=== PATIENT | female | born 1945 | race African-American/Black ===

== ENCOUNTER 2016-03-11 23:27 | Emergency (ER) | payer MEDICARE, MEDICAID ==
[~2016-03-11] VITALS: Ht 165.1 cm; Wt 74.8 kg
[2016-03-12 00:30] VITALS: BP 146/76
[2016-03-12] MEDS ORDERED: Miralax 17gm pkt ORAL STA (01:14)
[2016-03-12] MEDS ORDERED: PERI-COLACE1 EA ORAL (01:16)
[2016-03-12 01:25] VITALS: BP 154/75
[2016-03-12 01:30] VITALS: BP 154/75
--- NOTE | 2016-03-12 04:01 | Emergency Room Report ---
History of Present Illness General Chief Complaint: Constipation Source: Patient Present Illness HPI 70 YOF with "constipation for 2 days." States straining, abd pain, nausea/ vomiting, diarrhea, past surgical surgery, hard stools, pain with defecation. No history of anal fissure, hemorrhoids. No rectal bleed or blood on toilet paper. Taking "codeine" for months for chronic pain. Called PMD Dr Velasco's office, was Rx-ed glycerol suppository. She "placed 2" and it didnt work, so came to ED. Allergies: Coded Allergies: No Known Allergies (Unverified , 03/11/16) Patient History Past Medical History: other - Breast cancer Past Surgical History: none Pertinent Family History: none Social History: Denies: alcohol use, drug use, smoking Now: No Immunizations: UTD Reviewed Nursing Documentation: PMH: Agreed, PSxH: Agreed Nursing Documentation-PMH Past Medical History: No History, Except For Hx Hypertension: Yes Review of Systems All Other Systems: negative except mentioned in HPI Physical Exam Vital Signs Date Time Temp Pulse Resp B/P Pulse Ox O2 Delivery O2 Flow Rate FiO2 03/11/16 23:53 98.2 73 18 133/76 96 Room Air Sp02 EP Interpretation: reviewed, normal General Appearance: normal inspection, well appearing, no apparent distress, alert Head: normocephalic, atraumatic ENT: normal ENT inspection, hearing grossly normal, normal voice Neck: normal inspection, full range of motion, supple, no bony tend Respiratory: normal inspection, lungs clear, normal breath sounds, no respiratory distress, no retraction, no wheezing Cardiovascular #1: regular rate, rhythm, no edema Gastrointestinal: normal inspection, normal bowel sounds, non tender, soft, no mass, no guarding, no hernia, no pulsatile mass, no rebound Rectal: deferred Genitourinary: no CVA tenderness Musculoskeletal: normal inspection, back normal, normal range of motion, Ciara' s Sign negative Neurologic: normal inspection, alert, oriented x3, responsive, wearing apparel shaker III-XII nml as tested Psychiatric: normal inspection, judgement/insight normal, mood/affect normal Skin: normal inspection, normal color, no rash Medical Decision Making Diagnostic Impression: Primary Impression: Constipation Qualified Codes: K59.00 - Constipation, unspecified ER Course 70 YO F with constipation for 2-3 days. Still passing hard stools. VSS. Afebrile. Abd is non-focal. VSS. Low suspicion for SBO, ileus. Miralax given in ED to take at home Rx colace, senna Info on constipation, high fiber diet given Follw up with PMD recommended DC home Last Vital Signs Date Time Temp Pulse Resp B/P Pulse Ox O2 Delivery O2 Flow Rate FiO2 03/12/16 01:30 98.2 76 15 154/75 95 Room Air Status: improved Disposition: HOME, SELF-CARE Condition: Improved Scripts Docusate Sod/Senna (Docusate Sodium-Senna Tablet) 1 Each Tablet 1 CAP ORAL TWICE A DAY for 10 Days, #20 CAP 0 Refills Prov: CHRISTINA RUGGIERO M.D. 03/12/16 Referrals: SAJAN VELASCO (PCP) Patient Instructions: Constipation, Adult Additional Instructions: - Drink ALL the miralax at home by following instructions - After that, take docusate stool softener twice daily as long as you take your pain medication - Drink plenty of water, eat lots of green, leafy vegetables - Follow up with your primary care doctor in 2-3 days CHRISTINA RUGGIERO M.D. Mar 12, 2016 04:01
== END 2016-03-12 01:30 | disposition home or self-care (01) ==
LOC: EMR 03-12 00:29
DX: K59.00 Constipation, unspecified (principal); I10 Essential (primary) hypertension; Z85.3 Personal history of malignant neoplasm of breast
CPT/HCPCS: 99283

== ENCOUNTER 2017-06-08 07:34 | Outpatient (CLI) | payer MEDICARE, MEDICAID ==
[~2017-06-08 07:34] MED LIST: PERI-COLACE1 EA ORAL
[2017-06-08 10:10] LABS: BLOOD UREA NITROGEN 11 mg/dL (7-18); CREATININE 0.8 MG/DL (0.55-1.30)
--- NOTE | 2017-06-08 12:04 | Diagnostic Imaging Report ---
Indication: Osteoporosis Technique: 10 mm thick slices obtained through the L2, L3, and L4 vertebral bodies. Cortical and trabecular regions of interest were drawn. The average trabecular bone mineral density was calculated. Total dose length product 31 mGycm. CTDIvol(s) 3 x 3 mGy. Dose reduction achieved using automated exposure control Comparison: 01/12/2016 Findings: The calculated bone mineral density is 82.7 mg ca-DEAN/ml. The T score is -2.78. This indicates the patient's bone mineral density is 2.78 standard deviations below that of normal 20-year-old females. The Z score is 0.07. This indicates the patient's bone mineral density is 0.07 standard deviations above that of age-matched controls. When compared to prior study, there is been slight interval reduction in the bone density Impression: Patient's bone mineral density is greater than 25% below that of normal 20-year-old females. Patient is considered osteoporotic by WHO criteria. Insufficiency fracture risk is high. Patient should be considered for therapy, if not already initiated, with followup scan in one year to monitor response to therapy. Note slight increase in degree of demineralization, since previous study of 01/22/[address] scanner at [facility] is accredited by the [employer] and the scans are performed using protocols designed to limit radiation exposure to as low as reasonably achievable to attain images of sufficient resolution adequate for diagnostic evaluation.
--- NOTE | 2017-06-08 15:56 | Diagnostic Imaging Report ---
INDICATION: Chest and abdominal pain. History of pancreatic carcinoma TECHNIQUE: Patient ingested a limited amount of oral contrast, cannot tolerate full amount. IV administration nonionic contrast multiphasic spiral acquisitions obtained through the chest, abdomen, and pelvis Multiplanar reconstructions were generated. Total dose length product 1646.52 mGycm. CTDIvol(s) 16.65,16.65 mGy. Radiation dose was minimized using automated exposure control COMPARISON: none FINDINGS Chest: Very faint groundglass opacity of both lung bases likely reflects compressive atelectasis, possibly with a component of very mild pulmonary edema. There is more focal atelectasis at the left lung base as well. No infiltrates, effusions, masses, or nodules are demonstrated. The heart is mildly enlarged. No pericardial effusion. The main pulmonary artery is somewhat ectatic, measuring 36 mm transverse dimension. The included portions of the thyroid are unremarkable. No axillary or chest wall mass or adenopathy. The bones are unremarkable. Abdomen and pelvis: The liver is unremarkable. No focal abnormality demonstrated. The gallbladder is unremarkable. The upstream common bile duct is mildly ectatic, measuring 7 to 8 mm in diameter, but the downstream common bile duct is normal in caliber. A 6 mm very low attenuation lesion is seen at the anterior aspect of the pancreatic head. This is too small for accurate density measurements but appears to be fat attenuation and may represent a small lipoma or just a focal fat lobule. A calcification in the posterior pancreatic tail appears to be related to the splenic artery. The pancreas is otherwise unremarkable. 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 A punctate calcification is seen within the splenic parenchyma. It is otherwise unremarkable. There is an accessory splenule. The adrenals are unremarkable. The right kidney demonstrates a small focus of scarring in the interpolar region, with some dystrophic appearing calcifications immediately deep to it. The left kidney demonstrates a 9 mm fluid attenuation cyst. No retroperitoneal or mesenteric mass or adenopathy. The uterus is enlarged, demonstrates multiple masses as well as a large central calcification. No adnexal mass demonstrated. There are small fat-containing bilateral inguinal hernias. There are colonic diverticula. No evidence of diverticulitis. The appendix is normal. The small bowel is not well demonstrated due to lack of good oral contrast enhancement. However, it is not dilated and there is no gross wall thickening. No free or loculated peritoneal air or fluid is evident. The bones demonstrate minimal spondylosis at the lumbosacral junction IMPRESSION: No definite acute abnormality Cardiomegaly Very mild groundglass opacity of the lower lung. This is probably just compressive atelectasis related to the cardiomegaly, could also indicate a component of very mild pulmonary edema Somewhat ectatic main pulmonary artery. This suggests but is not diagnostic for pulmonary arterial hypertension 6 mm lesion in the anterior pancreatic head, appears to be fat density, probably a small lipoma or just a fatty lobule Tiny 7 mm splenic arterial aneurysm Enlarged uterus with multiple masses, presumed multiple fibroids. Large central calcification probably indicates a degenerated fibroid Colonic diverticulosis. No evidence of diverticulitis Other findings as noted, including minimal degenerative spondylosis, small fat-containing bilateral inguinal hernias, left renal cyst, right renal scarring and dystrophic calcification, small accessory splenule The CT scanner at [facility] is accredited by the [employer] and the scans are performed using protocols designed to limit radiation exposure to as low as reasonably achievable to attain images of sufficient resolution adequate for diagnostic evaluation.
== END 2017-06-08 09:34 | disposition home or self-care (01) ==
LOC: CAT 07:34
DX: C25.9 Malignant neoplasm of pancreas, unspecified (principal); M81.0 Age-related osteoporosis without current pathological fracture; I51.7 Cardiomegaly; I72.8 Aneurysm of other specified arteries; K57.30 Diverticulosis of large intestine without perforation or abscess without bleeding; M47.9 Spondylosis, unspecified; K40.20 Bilateral inguinal hernia, without obstruction or gangrene, not specified as recurrent; N20.0 Calculus of kidney
CPT/HCPCS: 36415; 71260; 74177; 77078; 82565; 84520; Q9967

== ENCOUNTER → 2017-10-20 | Outpatient (CLI) | payer MEDICARE, MEDICAID ==
[2017-10-20 12:13] LABS: APPEARANCE,URINE SLIGHTLY CLOUDY; BILIRUBIN, URINE NEGATIVE (NEGATIVE); COLOR,URINE PALE YELLOW; GLUCOSE, URINE (UA) 1+ (NEGATIVE); KETONES,URINE NEGATIVE (NEGATIVE); LEUKOCYTE ESTERASE ,URINE NEGATIVE (NEGATIVE); NITRITE,URINE NEGATIVE (NEGATIVE); PH,URINE 7 (4.5-8.0); PROTEIN,URINE 1+ (NEGATIVE); UROBILINOGEN,URINE NORMAL MG/DL (0.0-1.0)
== END | disposition home or self-care (01) ==
LOC: LAB 11:38
DX: R30.0 Dysuria (principal)
CPT/HCPCS: 81001; 87086

== ENCOUNTER 2019-09-25 12:51 | Emergency (ER) | payer MEDICARE, MEDICAID ==
[~2019-09-25] VITALS: Ht 165.1 cm; Wt 72.6 kg
[2019-09-25 13:15] VITALS: BP 144/83
[2019-09-25] MEDS ORDERED: Ketorolac 30mg Inj IM ONE (13:30)
[2019-09-25] MEDS ORDERED: Methocarbamol 750mg tab ORAL ONE (13:30)
--- NOTE | 2019-09-25 14:15 | Diagnostic Imaging Report ---
EXAM: CT Pelvis Without Intravenous Contrast CLINICAL HISTORY: TRAUMA TECHNIQUE: Axial computed tomography images of the pelvis without intravenous contrast. Sagittal and coronal reformatted images were created and reviewed. CTDI is 5.90 mGy and DLP is 281.70 mGy-cm. One or more of the following dose reduction techniques were used: automated exposure control, adjustment of the mA and/or kV according to patient size, use of iterative reconstruction technique. COMPARISON: CT of the pelvis dated 06/26/17. CT of the lumbar spine dated 09/25/19. FINDINGS: Bowel: Unremarkable. No obstruction. No mucosal thickening. Appendix: No findings to suggest acute appendicitis. Intraperitoneal space: Unremarkable. No free air. No significant fluid collection. Bladder: Unremarkable. No stones. Reproductive: 1.9 x 1.9 x 1.8 cm coarse calcification in the uterus, likely a fibroid.. Bones/joints: Mild degenerative narrowing in bilateral hip joints. Moderate to severe disc space loss at L5-S1. No visible fracture or dislocation in the hips or pelvis. Bilateral facet arthrosis at L4-5 and L5-S1. Soft tissues: Unremarkable. Vasculature: Atherosclerosis throughout the abdominal aorta and its proximal branches. No abdominal aortic aneurysm. Lymph nodes: Unremarkable. No enlarged lymph nodes. IMPRESSION: No acute findings. No evidence of fracture or dislocation in the hips or pelvis.
--- NOTE | 2019-09-25 14:18 | Emergency Room Report ---
History of Present Illness General Chief Complaint: Multiple Trauma/Fall Source: Patient Present Illness HPI 74-year-old female with no significant past medical history other than hypertension here complaining of low back pain after fall that occurred a week and half ago. Patient reports that she has been taking [id number]-[id number] medication with minimal relief. Rates the pain 7 out of 10 without radiation. Denies any tingling numbness. Denies saddle paresthesia, urinary bowel incontinence. Patient is not taking any blood thinners. Denies any head injury or loss of consciousness. Patient reports that she was working on her kitchen floor when she slipped and landed on her right buttocks. Patient is ambulatory and has full range of motion of the lower back. Patient denies chest pain, shortness of breath, headache and dizziness. Allergies: Coded Allergies: No Known Allergies (Unverified , 03/11/16) COVID-19 Screening Contact w/high risk pt: No Experienced COVID-19 symptoms?: No COVID-19 Testing performed ESTHETICIAN/SKIN THERAPIST: No Patient History Past Medical History: see triage record Past Surgical History: none Pertinent Family History: none Last Menstrual Period: n/a Now: No Immunizations: UTD Reviewed Nursing Documentation: PMH: Agreed; PSxH: Agreed Nursing Documentation-PMH Past Medical History: No History, Except For Hx Hypertension: Yes Review of Systems All Other Systems: negative except mentioned in HPI Physical Exam Vital Signs Date Time Temp Pulse Resp B/P (MAP) Pulse Ox O2 Delivery O2 Flow Rate FiO2 09/25/19 13:00 98.2 75 18 144/83 (103) 95 Room Air Sp02 EP Interpretation: reviewed, normal General Appearance: no apparent distress, alert, GCS 15, non-toxic Head: normocephalic, atraumatic Eyes: bilateral eye normal inspection, bilateral eye PERRL ENT: hearing grossly normal, normal pharynx, no angioedema, normal voice Neck: full range of motion, supple/symm/no masses Respiratory: chest non-tender, lungs clear, normal breath sounds, no rhonchi, no respiratory distress, no retraction, no wheezing, speaking full sentences Cardiovascular #1: regular rate, rhythm, no edema Cardiovascular #2: 2+ dorsalis pedis (R), 2+ dorsalis pedis (L) Gastrointestinal: normal bowel sounds, non tender, soft, non-distended, no guarding, no rebound Rectal: deferred Genitourinary: no CVA tenderness Musculoskeletal: back normal, no calf tenderness, pelvis stable, gait/station normal Neurologic: alert, motor strength/tone normal, oriented x3, sensory intact, responsive, speech normal Psychiatric: judgement/insight normal, memory normal, mood/affect normal, no suicidal/homicidal ideation Skin: no rash Lymphatic: no adenopathy Medical Decision Making PA Attestation All diagnosis and treatment plans were discussed and reviewed by my supervising physician Dr. Silverio Diagnostic Impression: Primary Impression: Contusion, hip Additional Impressions: Bulging lumbar disc Narrowing of lumbar spine ER Course 74-year-old female with no significant past medical history other than hypertension here complaining of low back pain after fall that occurred a week and half ago. Patient reports that she has been taking [id number]-atj-eldbhna medication with minimal relief. Rates the pain 7 out of 10 without radiation. Denies any tingling numbness. Denies saddle paresthesia, urinary bowel incontinence. Patient is not taking any blood thinners. Denies any head injury or loss of consciousness. Patient reports that she was working on her kitchen floor when she slipped and landed on her right buttocks. Patient is ambulatory and has full range of motion of the lower back. Patient denies chest pain, shortness of breath, headache and dizziness. Ddx considered but are not limited to: Lumbar spine sprain, strain, fracture, contusion, neuropathy, hip fracture versus contusion Vital signs: are WNL, pt. is afebrile Dx: Hip contusion, bulging lumbar disc, narrowing of lumbar spine ORDERS: L-spine CT no contrast, pelvic CT noncontrast, Motrin, lidocaine patch, Tylenol ER intervention: Toradol, Robaxin DISCHARGE: At this time pt. is stable for d/c to home. Will provide printed patient care instructions, and any necessary prescriptions. Care plan and follow up instructions have been discussed with the patient prior to discharge. Patient to follow primary care provider for referral to gas plant specialist , medication as directed, if worsening symptoms return to the emergency room CT/MRI/US Diagnostic Results CT/MRI/US Diagnostic Results #1: Imaging Test Ordered: CT L-spine no contrast Impression FINDINGS: Vertebrae:No evidence of acute fracture or malalignment in the lumbar spine. The lumbar vertebral bodyheights are preserved. Normal alignment. Lumbar spinous processes and transverse processes appear intact. Discs/spinal canal/neural foramina: Severe disc space loss at L5-S1. Moderate to severe bilateral facet arthrosis at L4-5 and L5-S1. Posterior disc bulges at L4-5 and L5-S1. Soft tissues:Unremarkable. Vasculature:Atherosclerosis throughout the abdominal aorta and its proximal branches. No abdominal aortic aneurysm. IMPRESSION: 1. No evidence of acute fracture or malalignment in the lumbar spine. 2. Severe disc space loss at L5-S1. 3. Moderate to severe bilateral facet arthrosis CT/MRI/US Diagnostic Results #2: Imaging Test Ordered: CT pelvis no contrast Impression FINDINGS: Bowel:Unremarkable. No obstruction. No mucosal thickening. Appendix:No findings to suggest acute appendicitis. Intraperitoneal space:Unremarkable. No free air. No significant fluid collection. Bladder:Unremarkable. No stones. Reproductive: 1.9 x 1.9 x 1.8 cmcoarse calcification in the uterus, likelya fibroid.. Bones/joints: Mild degenerative narrowing in bilateral hip joints. Moderate to severe disc space loss at L5-S1. No visible fracture or dislocation in the hips or pelvis. Bilateral facet arthrosis at L4-5 and L5- S1. Soft tissues:Unremarkable. Vasculature:Atherosclerosis throughout the abdominal aorta and its proximal branches. No abdominal aortic aneurysm. Lymph nodes:Unremarkable. No enlarged lymph nodes. IMPRESSION: No acute findings. No evidence of fracture or dislocation in the hips or pelvis. Last Vital Signs Date Time Temp Pulse Resp B/P (MAP) Pulse Ox O2 Delivery O2 Flow Rate FiO2 09/25/19 13:00 98.2 75 18 144/83 (103) 95 Room Air Disposition: HOME, SELF-CARE Condition: Stable Scripts Acetaminophen* (TYLENOL EXTRA STRENGTH*) 500 Mg Tablet 500 MG ORAL Q8H PRN for Prn Headache/Temp > 101, #30 TAB 0 Refills Prov: Servando Millan 09/25/19 Ibuprofen* (MOTRIN*) 600 Mg Tablet 600 MG ORAL Q6H PRN for For Pain, #30 TAB 0 Refills Prov: Servando Millan 09/25/19 Lidocaine Patch* (Lidoderm Patch*) 1 Each Adh..patch 1 PATCH TOPIC DAILY, #30 PATCH Patch(es) may remain in place for up to 12 hours in any 24-hour period. Prov: Servando Millan 09/25/19 Referrals: NOT CHOSEN IPA/MD,REFERRING (PCP) Patient Instructions: Contusion, [id number]-[id number], Spinal Fusion, [id number] Additional Instructions: Take medication as directed, follow-up with your primary care provider and gas plant specialist, avoid strenuous physical activity, if worsening symptoms return to the emergency room Servando Millan Sep 25, 2019 14:18
--- NOTE | 2019-09-25 14:19 | Diagnostic Imaging Report ---
EXAM: CT Lumbar Spine Without Intravenous Contrast CLINICAL HISTORY: TRAUMA TECHNIQUE: Axial computed tomography images of the lumbar spine without intravenous contrast. Sagittal and coronal reformatted images were created and reviewed. CTDI is 5.90 mGy and DLP is 281.70 mGy-cm. One or more of the following dose reduction techniques were used: automated exposure control, adjustment of the mA and/or kV according to patient size, use of iterative reconstruction technique. COMPARISON: CT pelvis obtained the same date FINDINGS: Vertebrae: No evidence of acute fracture or malalignment in the lumbar spine. The lumbar vertebral body heights are preserved. Normal alignment. Lumbar spinous processes and transverse processes appear intact. Discs/spinal canal/neural foramina: Severe disc space loss at L5-S1. Moderate to severe bilateral facet arthrosis at L4-5 and L5-S1. Posterior disc bulges at L4-5 and L5-S1. Soft tissues: Unremarkable. Vasculature: Atherosclerosis throughout the abdominal aorta and its proximal branches. No abdominal aortic aneurysm. IMPRESSION: 1. No evidence of acute fracture or malalignment in the lumbar spine. 2. Severe disc space loss at L5-S1. 3. Moderate to severe bilateral facet arthrosis at L4-5 and L5-S1. 4. Posterior disc bulges at L4-5 and L5-S1.
[2019-09-25] MEDS ORDERED: TYLENOL EXTRA500 MG ORAL (14:24)
[2019-09-25] MEDS ORDERED: IBUPROFEN600 M1 ORAL (14:24)
[2019-09-25] MEDS ORDERED: LIDODERM700 M1 TOPIC (14:24)
[2019-09-25 15:08] VITALS: BP 144/83
== END 2019-09-25 15:08 | disposition home or self-care (01) ==
LOC: EMR 13:33
DX: M48.061 Spinal stenosis, lumbar region without neurogenic claudication (principal); S70.00XA Contusion of unspecified hip, initial encounter; I70.0 Atherosclerosis of aorta; M51.27 Other intervertebral disc displacement, lumbosacral region; W19.XXXA Unspecified fall, initial encounter; Y92.9 Unspecified place or not applicable
CPT/HCPCS: 72131; 72192; 96372; 99284; J1885

== ENCOUNTER → 2019-10-25 | Outpatient (CLI) | payer MEDICARE, MEDICAID ==
[~2019-10-25] MED LIST changes: +IBUPROFEN600 M1 ORAL; +LIDODERM700 M1 TOPIC; +TYLENOL EXTRA500 MG ORAL
--- NOTE | 2019-10-25 15:43 | Diagnostic Imaging Report ---
Indication: Chronic low back pain the left-sided L5 radiculopathy Technique: Sagittal T1 and T2 fast spin echo, sagittal STIR, axial T1 and T2 fast spin-echo images of the lumbar spine Comparison: No comparison MRI. Reference made to lumbar spine CT scan dated 09/25/2019 Findings: There is very slight anterior offset of L4 on L5. Bony alignment is normal otherwise. The vertebral marrow signal is normal. Vertebral body heights are preserved. Conus medullaris terminates at the T12-L1 level. There is degenerative disc narrowing at L5-S1. At L3-4, there is mild narrowing of the left neural foramen, predominantly due to facet and ligamentum flavum hypertrophy. The right neural foramen is patent. No significant disc bulge or protrusion or spinal stenosis. At L4-5, circumferential annular bulge, facet and ligamentum flavum hypertrophy, as well as the above-mentioned alignment abnormality results in at least moderate spinal stenosis, minimum AP dimension of the spinal canal 6 mm. There is also mild compromise of the bilateral neural foramina. At L5-S1, there is moderate degenerative disc narrowing. There is broad-based posterior disc protrusion with a high intensity zone, this results in borderline narrowing the spinal canal. There is a right paracentral component which may compromise the right lateral recess. There is also moderate narrowing of the bilateral neural foramina, due to predominantly to the bulging disc. At the remaining disc levels, no significant disc bulge or protrusion, spinal stenosis, or neural foraminal narrowing. Included extraspinal soft tissues are unremarkable for the presence of a cyst in the left kidney. Impression: At least moderate spinal stenosis at L4-5, as described above, due to combination of circumferential annular bulge, facet and ligamentum flavum hypertrophy as well as slight alignment abnormality. Broad-based posterior disc protrusion at L5-S1 with high intensity zone. This results in only borderline spinal canal stenosis, but may compromise right lateral recess and neural foramina Other findings as noted
== END | disposition home or self-care (01) ==
LOC: MRI 08:49
DX: M54.5 Low back pain (principal); G89.29 Other chronic pain; M51.27 Other intervertebral disc displacement, lumbosacral region; N28.1 Cyst of kidney, acquired
CPT/HCPCS: 72148

== ENCOUNTER 2019-12-13 20:26 | Emergency (ER) | payer MEDICARE, MEDICAID ==
[~2019-12-13] VITALS: Ht 165.1 cm; Wt 72.6 kg
--- NOTE | 2019-12-13 20:30 | NUR ---
ED Nurse Note: wheelchaired in to ed c/o loss of appetite and difficulty swallowing with sore throat x1 wk accompanied by dizziness. vss, nad, aaox4, ambulatory, erpa at bedside, pt on panel monitor.
--- NOTE | 2019-12-13 20:48 | NUR ---
ED Nurse Note: covid swab collected and sent to lab
--- NOTE | 2019-12-13 20:49 | NUR ---
ED Nurse Note: blood sent to lab
--- NOTE | 2019-12-13 20:50 | NUR ---
ED Nurse Note: xr at bedside
[2019-12-13 20:52] VITALS: BP 135/76
--- NOTE | 2019-12-13 20:58 | Emergency Room Report ---
History of Present Illness General Chief Complaint: Generalized Weakness Source: Patient Present Illness HPI 74-year-old female with history of hypertension currently taking medication which does not recall the name, here complaining of 1 week of sore throat and lack of appetite with slight dizziness. Denies any abdominal pain, nausea vomiting diarrhea. Also complains of weakness and reports that he might be secondary to her not being able to eat. Rates the pain 3-10 without radiation. Denies any fever and chills, cough and congestion, shortness of breath. Denies any history of tobacco smoke, drug use, alcohol intake. Patient is not taking any blood thinners, no unilateral generalized weakness noted. No slurred speech noted. Denies any palpitation or chest pain. Allergies: Coded Allergies: No Known Allergies (Unverified , 03/11/16) COVID-19 Screening Contact w/high risk pt: No Experienced COVID-19 symptoms?: No COVID-19 Testing performed HEAD LIBRARIAN: Yes - 11/21 COVID-19 Screening: Negative COVID-19 COVID-19 Testing Source: [facility] Patient History Past Medical History: see triage record Past Surgical History: none Pertinent Family History: none Now: No Immunizations: UTD Reviewed Nursing Documentation: PMH: Agreed; PSxH: Agreed Nursing Documentation-PMH Past Medical History: No History, Except For Hx Hypertension: Yes Review of Systems All Other Systems: negative except mentioned in HPI Physical Exam Vital Signs Date Time Temp Pulse Resp B/P (MAP) Pulse Ox O2 Delivery O2 Flow Rate FiO2 //20 20:29 97.0 81 20 135/76 (95) 93 Room Air Sp02 EP Interpretation: reviewed General Appearance: no apparent distress, alert, GCS 15, non-toxic Head: normocephalic, atraumatic Eyes: bilateral eye normal inspection, bilateral eye PERRL ENT: hearing grossly normal, no angioedema, normal voice, TMs + canals normal, tonsillar swelling, tonsillar exudate Neck: full range of motion, supple, supple/symm/no masses Respiratory: chest non-tender, lungs clear, normal breath sounds, no rhonchi, no respiratory distress, no retraction, no wheezing, speaking full sentences Cardiovascular #1: regular rate, rhythm, no edema, no murmur Cardiovascular #2: 2+ carotid (R), 2+ carotid (L), 2+ radial (R), 2+ radial (L ), 2+ dorsalis pedis (R), 2+ dorsalis pedis (L) Gastrointestinal: normal bowel sounds, non tender, soft, non-distended, no guarding, no rebound Rectal: deferred Genitourinary: no CVA tenderness Musculoskeletal: back normal Neurologic: alert, motor strength/tone normal, oriented x3, sensory intact, responsive, speech normal Psychiatric: judgement/insight normal, memory normal, mood/affect normal, no suicidal/homicidal ideation Skin: no rash Lymphatic: adenopathy - ant cervical Medical Decision Making PA Attestation All my diagnosis and treatment plans were reviewed ad discussed with my supervising physician Dr. Polo Diagnostic Impression: Primary Impression: Dizziness Additional Impressions: Tonsillitis with exudate Diabetes ER Course 74-year-old female with history of hypertension currently taking medication which does not recall the name, here complaining of 1 week of sore throat and lack of appetite with slight dizziness. Denies any abdominal pain, nausea vomiting diarrhea. Also complains of weakness and reports that he might be secondary to her not being able to eat. Rates the pain 3-10 without radiation. Denies any fever and chills, cough and congestion, shortness of breath. Denies any history of tobacco smoke, drug use, alcohol intake. Patient is not taking any blood thinners, no unilateral generalized weakness noted. No slurred speech noted. Denies any palpitation or chest pain. Ddx considered but are not limited to: Coronavirus, strep pharyngitis, dizziness due to alcohol intoxication, dizziness unspecified, dizziness due to head trauma, dizziness secondary to cardiac reasons Vital signs: are WNL, pt. is afebrile H&PE are most consistent with: Tonsillitis with exudate, dizziness, hyper glycemia ORDERS: CBC, CMP, UA, EKG, chest x-ray, troponin, head CT no contrast, augmentin, metformin ibuprofen ER intervention: NS bolus, metformin After notify patient that blood sugar is elevated patient did mention that she has been told several times with primary doctor that she might be having diabetes however she has not taken medication for it. I start her on metformin and told her to reason that she feels dizziness can be secondary to diabetes being uncontrolled. Patient to follow primary care doctor, take medication as directed, if worsening symptoms return to the emergency room. Patient is stable at time of discharge. EKG Diagnostic Results Rate: normal Rhythm: NSR ST Segments: no acute changes Other Impression No acute ST changes ASA given to the pt in ED: No Chest X-Ray Diagnostic Results Chest X-Ray Diagnostic Results : Chest X-Ray Ordered: Yes # of Views/Limited/Complete: 1 View Indication: Other - low stat EP Interpretation: Yes PA Xray: Interpretation reviewed, by supervising MD, and agrees with findings. Interpretation: no consolidation, no effusion, no pneumothorax Impression: No acute disease Electronically Signed by: Servando Arciniega PA-C CT/MRI/US Diagnostic Results CT/MRI/US Diagnostic Results : Imaging Test Ordered: CT head no contrast Impression COMPARISON: No relevant prior studies available. FINDINGS: Brain: Patchy and confluent low attenuation throughout the periventricular white matter is most consistent with chronic small vessel disease. Negative for mass-effect or intracranial hemorrhage. Ventricles: Unremarkable. No ventriculomegaly. Bones/joints: Unremarkable. No acute fracture. Soft tissues: Unremarkable. Sinuses: Unremarkable as visualized. No acute sinusitis. Mastoid air cells: Unremarkable as visualized. No mastoid effusion. Other findings: Motion degraded study. IMPRESSION: No evidence of acute intracranial abnormality. Last Vital Signs Date Time Temp Pulse Resp B/P (MAP) Pulse Ox O2 Delivery O2 Flow Rate FiO2 12/13/19 20:29 97.0 81 20 135/76 (95) 93 Room Air Disposition: HOME, SELF-CARE Condition: Stable Referrals: Anthony Winkler DO (PCP) Patient Instructions: Diabetes Mellitus and Food, Dizziness, Pharyngitis, [id number] Additional Instructions: After notify patient that blood sugar is elevated patient did mention that she has been told several times with primary doctor that she might be having diabetes however she has not taken medication for it. I start her on metformin and told her to reason that she feels dizziness can be secondary to diabetes being uncontrolled. Patient to follow primary care doctor, take medication as directed, if worsening symptoms return to the emergency room. Patient is stable at time of discharge. Servando Millan Dec 13, 2019 20:58
[2019-12-13 20:59] LABS: BASOPHILS % (AUTO) 1.3 % (0.0-2.0); EOSINOPHILS % (AUTO) 1.6 % (0.0-3.0); HEMATOCRIT 41.6 % (37.0-47.0); HEMOGLOBIN 13.5 G/DL (12.0-16.0); LYMPHOCYTES % (AUTO) 35.1 % (20.0-45.0); MEAN CORPUSCULAR VOLUME 88 FL (80-99); MONOCYTES % (AUTO) 4.4 % (1.0-10.0); NEUTROPHILS % (AUTO) 57.7 % (45.0-75.0); PLATELET COUNT 260 K/UL (150-450); RED BLOOD COUNT 4.71 M/UL (4.20-5.40); RED CELL DISTRIBUTION WIDTH 12.5 % (11.6-14.8); WHITE BLOOD COUNT 9.4 K/UL (4.8-10.8)
--- NOTE | 2019-12-13 21:00 | NUR ---
ED Nurse Note: pt went for ct
[2019-12-13 21:07] LABS: ANION GAP 8 mmol/L (5-15); BLOOD UREA NITROGEN 17 mg/dL (7-18); CALCIUM 8.7 MG/DL (8.5-10.1); CARBON DIOXIDE 32 MMOL/L (21-32); CHLORIDE 99 MMOL/L (98-107); POTASSIUM 3.3 MMOL/L (3.5-5.1); SODIUM 139 MMOL/L (136-145)
[2019-12-13 21:11] LABS: ALANINE AMINOTRANSFERASE 26 U/L (12-78); ALBUMIN 3.5 G/DL (3.4-5.0); ALBUMIN/GLOBULIN RATIO 0.8 (1.0-2.7); ALKALINE PHOSPHATASE 99 U/L (46-116); ASPARTATE AMINO TRANSFERASE 18 U/L (15-37); BILIRUBIN,TOTAL 0.3 MG/DL (0.2-1.0)
--- NOTE | 2019-12-13 21:13 | NUR ---
ED Nurse Note: pt back from ct
--- NOTE | 2019-12-13 21:21 | Diagnostic Imaging Report ---
EXAM: CT Head Without Intravenous Contrast CLINICAL HISTORY: DIZZY TECHNIQUE: Axial computed tomography images of the head/brain without intravenous contrast. CTDI is 53.40 mGy and DLP is 1179.10 mGy-cm. One or more of the following dose reduction techniques were used: automated exposure control, adjustment of the mA and/or kV according to patient size, use of iterative reconstruction technique. COMPARISON: No relevant prior studies available. FINDINGS: Brain: Patchy and confluent low attenuation throughout the periventricular white matter is most consistent with chronic small vessel disease. Negative for mass-effect or intracranial hemorrhage. Ventricles: Unremarkable. No ventriculomegaly. Bones/joints: Unremarkable. No acute fracture. Soft tissues: Unremarkable. Sinuses: Unremarkable as visualized. No acute sinusitis. Mastoid air cells: Unremarkable as visualized. No mastoid effusion. Other findings: Motion degraded study. IMPRESSION: No evidence of acute intracranial abnormality.
--- NOTE | 2019-12-13 21:30 | NUR ---
ED Nurse Note: pt ambulated to the restroom with steady gait. urine collected and sent to lab
[2019-12-13 21:35] LABS: APPEARANCE,URINE CLEAR; BILIRUBIN, URINE NEGATIVE (NEGATIVE); COLOR,URINE YELLOW; GLUCOSE, URINE (UA) 4+ (NEGATIVE); KETONES,URINE NEGATIVE (NEGATIVE); LEUKOCYTE ESTERASE ,URINE NEGATIVE (NEGATIVE); NITRITE,URINE NEGATIVE (NEGATIVE); PH,URINE 7 (4.5-8.0); PROTEIN,URINE NEGATIVE (NEGATIVE); UROBILINOGEN,URINE 1 MG/DL (0.0-1.0)
[2019-12-13] MEDS ORDERED: metFORMIN 500mg tab ORAL SCH (21:45)
[2019-12-13] MEDS ORDERED: METFORMIN HCL500 M1 ORAL (21:53)
[2019-12-13] MEDS ORDERED: IBUPROFEN400 MG ORAL (21:53)
[2019-12-13] MEDS ORDERED: AUGMENTIN 875-1 EAC1 ORAL (21:53)
[2019-12-13 22:10] VITALS: BP 131/70
--- NOTE | 2019-12-13 22:10 | NUR ---
ER DISCHARGE NOTE: Patient is cleared to be discharged per ERMD, pt is aox4, on room air, with stable vital signs. pt was given dc and prescription instructions, pt was able to verbalize understanding, pt id band and iv site removed without complications. pt is able to ambulate with steady gait. pt took all belongings.
--- NOTE | 2019-12-14 15:58 | Cardiology Report ---
APPROVED REPORT EKG Measurement Heart [id number] <Conclusion> Sinusl rhythm Left anterior fascicular block Septal infarct, age undetermined Abnormal ECG
--- NOTE | 2019-12-14 20:34 | Diagnostic Imaging Report ---
Indication: Shortness of breath Technique: One view of the chest Comparison: none Findings: No acute infiltrates, effusions, or congestion. Tortuous calcified aorta. Normal heart size. Upper mediastinum unremarkable. Surgical clips are seen in the left axilla Impression: No acute process.
== END 2019-12-13 22:10 | disposition home or self-care (01) ==
LOC: EMR 20:46
DX: J03.90 Acute tonsillitis, unspecified (principal); E11.9 Type 2 diabetes mellitus without complications; R42 Dizziness and giddiness; I10 Essential (primary) hypertension
CPT/HCPCS: 36415; 70450; 71045; 80053; 80307; 81003; 83690; 84484; 85025; 93005; 96360; 99284; J7030; U0002

== ENCOUNTER → 2019-12-22 | Outpatient (CLI) | payer MEDICARE, MEDICAID ==
[~2019-12-22] MED LIST changes: +AUGMENTIN 875-1 EAC1 ORAL; +IBUPROFEN400 MG ORAL; +METFORMIN HCL500 M1 ORAL
--- NOTE | 2019-12-22 15:17 | Diagnostic Imaging Report ---
Clinical Indication: Abdominal pain and weight loss Technique: No oral contrast utilized, per emergency room physician request IV administration nonionic contrast. Venous phase spiral acquisition obtained through the abdomen and pelvis. Multiplanar reconstructions were generated. Total dose length product 333 mGycm. CTDIvol(s) 6 mGy. Dose reduction achieved using automated exposure control Comparison: 06/08/2017, also pelvic CT dated 09/25/2019 Findings: The appendix is normal. There is colonic diverticulosis. No evidence of acute diverticulitis. No small bowel distention. No free or loculated intraperitoneal gas or fluid is evident. The distal esophagus, stomach, duodenum are unremarkable. The liver, gallbladder, bile ducts, pancreas, adrenals, right kidney are unremarkable. Left kidney demonstrates an interpolar region cyst. 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 Unchanged 7 mm splenic hilar aneurysm. Previously questioned pancreatic head abnormality is not evident currently. No renal or ureteral calculi, hydronephrosis, or hydroureter. The uterus again contains a calcification. No adnexal mass. The bones demonstrate degenerative spondylosis changes. The included lung bases demonstrate posterior dependent atelectatic changes Impression: No acute process Unchanged 7 mm splenic hilar aneurysm Other incidental findings as noted The CT scanner at [facility] is accredited by the [employer] and the scans are performed using protocols designed to limit radiation exposure to as low as reasonably achievable to attain images of sufficient resolution adequate for diagnostic evaluation.
== END | disposition home or self-care (01) ==
LOC: EDSTATUS 12-21 09:00 → CAT 08:26
DX: R10.9 Unspecified abdominal pain (principal); I72.8 Aneurysm of other specified arteries; M47.819 Spondylosis without myelopathy or radiculopathy, site unspecified; N28.1 Cyst of kidney, acquired; R63.4 Abnormal weight loss
CPT/HCPCS: 74177; Q9965